=== PATIENT | female | born 1970 | race Caucasian/White ===

== ENCOUNTER 2016-07-15 11:05 | Emergency (ER) | payer BC, OTHER, SELFPAY ==
[~2016-07-15] VITALS: Ht 180.3 cm; Wt 76.6 kg
[2016-07-15] MEDS ORDERED: ONDANSETRON 2MG/ML, 2ML IVPush ONE (12:30)
[2016-07-15] MEDS ORDERED: DIPHENHYDRAMINE 50 MG/ML, 1ML IVPush ONE (12:30)
[2016-07-15] MEDS ORDERED: METOCLOPRAMIDE 5 MG/ML, 2ML IVPush ONE (12:30)
[2016-07-15] MEDS ORDERED: SODIUM CHLORIDE FLUSH 10ML SYR IVF ONE (12:30)
[2016-07-15] MEDS ORDERED: METOCLOPRAMIDE 5 MG/ML, 2ML ONE (12:37)
[2016-07-15] MEDS ORDERED: ONDANSETRON 2MG/ML, 2ML ONE (12:37)
[2016-07-15] MEDS ORDERED: DIPHENHYDRAMINE 50 MG/ML, 1ML ONE (12:37)
[2016-07-15 13:11] LABS: BLOOD UREA NITROGEN 7 mg/dL (7-18)
[2016-07-15 14:49] VITALS: BP 124/78
== END 2016-07-15 14:51 | disposition home or self-care (01) ==
LOC: ED 14:36
DX: G43.011 Migraine without aura, intractable, with status migrainosus (principal); J32.2 Chronic ethmoidal sinusitis; J32.0 Chronic maxillary sinusitis
CPT/HCPCS: 36415; 70450; 72125; 80048; 82040; 83735; 84439; 84443; 85025; 96374; 96375; 99285; J1200; J2405; J2765

== ENCOUNTER 2017-08-18 11:31 | Emergency (ER) | payer BC ==
[~2017-08-18] VITALS: Ht 175.3 cm; Wt 73.6 kg
[2017-08-18 11:44] VITALS: BP 134/85
[2017-08-18 13:31] LABS: BASOPHILS # (AUTO) 0.06 x10^3/uL (0-0.1); BASOPHILS % (AUTO) 1 % (0-1); EOSINOPHILS # (AUTO) 0.39 x10^3/uL (0-0.4); EOSINOPHILS % (AUTO) 5 % (1-7); LYMPHOCYTES # (AUTO) 1.88 x10^3/uL (1-3.4); LYMPHOCYTES % (AUTO) 23 % (22-44); MD NO; MEAN CORPUSCULAR HGB CONC 33.8 g/dL (32.4-35.8); MEAN CORPUSCULAR VOLUME 88.8 fL (80-100); MEAN PLATELET VOLUME 7.6 fL (7.4-10.4); MONOCYTES # (AUTO) 0.57 x10^3/uL (0.2-0.8); MONOCYTES % (AUTO) 7 % (2-9); NEUTROPHILS # (AUTO) 5.13 x10^3/uL (1.8-6.8); NEUTROPHILS % (AUTO) 64 % (42-75); PLATELET COUNT 319 x10^3/uL (130-400); RED BLOOD COUNT 4.91 x10^6/uL (3.82-5.3); RED CELL DISTRIBUTION WIDTH 14.1 % (9.6-15.2)
[2017-08-18 13:41] LABS: ALBUMIN 3.9 g/dL (3.4-5.0); ANION GAP 6 mmol/L (5-15); CALCIUM 8.4 mg/dL (8.5-10.1); CHLORIDE 109 mmol/L (98-107); CREATININE 0.64 mg/dL (0.55-1.02)
[2017-08-18 15:02] LABS: MICROSCOPIC AUTO
[2017-08-18 15:03] LABS: CULTURE INDICATED? YES
== END 2017-08-18 15:31 | disposition home or self-care (01) ==
LOC: ED 14:57
DX: N30.00 Acute cystitis without hematuria (principal); E03.9 Hypothyroidism, unspecified
CPT/HCPCS: 36415; 80048; 81001; 82040; 84703; 85025; 87086; 99284

== ENCOUNTER 2017-09-08 10:20 | Emergency (ER) | payer BC ==
[~2017-09-08] VITALS: Ht 177.8 cm; Wt 74.6 kg
[2017-09-08] MEDS ORDERED: THYR30TA PO (10:46)
[2017-09-08] MEDS ORDERED: ONDANSETRON 2MG/ML, 2ML ONE (10:48)
[2017-09-08] MEDS ORDERED: KETOROLAC 30 MG/1 ML ONE (10:48)
[2017-09-08] MEDS ORDERED: MORPHINE SULFATE 4 MG/ML, 1ML ONE (10:49)
[2017-09-08] MEDS ORDERED: SODIUM CHLORIDE FLUSH 10ML SYR IVF ONE (11:00)
[2017-09-08] MEDS ORDERED: KETOROLAC 30 MG/1 ML IVPush ONE (11:00)
[2017-09-08] MEDS ORDERED: MORPHINE SULFATE 4 MG/ML, 1ML IVPush PRN (11:00)
[2017-09-08] MEDS ORDERED: ONDANSETRON 2MG/ML, 2ML IVPush ONE (11:00)
[2017-09-08 11:08] LABS: BASOPHILS # (AUTO) 0.03 x10^3/uL (0-0.1); BASOPHILS % (AUTO) 0 % (0-1); EOSINOPHILS # (AUTO) 0.22 x10^3/uL (0-0.4); EOSINOPHILS % (AUTO) 3 % (1-7); LYMPHOCYTES # (AUTO) 1.52 x10^3/uL (1-3.4); LYMPHOCYTES % (AUTO) 22 % (22-44); MD NO; MEAN CORPUSCULAR HEMOGLOBIN 30.6 pg (27.0-34.8); MEAN CORPUSCULAR HGB CONC 34.4 g/dL (32.4-35.8); MEAN CORPUSCULAR VOLUME 89.1 fL (80-100); MEAN PLATELET VOLUME 7.7 fL (7.4-10.4); MONOCYTES # (AUTO) 0.38 x10^3/uL (0.2-0.8); MONOCYTES % (AUTO) 6 % (2-9); NEUTROPHILS # (AUTO) 4.73 x10^3/uL (1.8-6.8); NEUTROPHILS % (AUTO) 69 % (42-75); PLATELET COUNT 297 x10^3/uL (130-400); RED BLOOD COUNT 4.71 x10^6/uL (3.82-5.3); RED CELL DISTRIBUTION WIDTH 13.6 % (9.6-15.2)
[2017-09-08 11:19] LABS: ALANINE AMINOTRANSFERASE 18 U/L (12-78); ANION GAP 6 mmol/L (5-15); CALCIUM 8.5 mg/dL (8.5-10.1); CHLORIDE 110 mmol/L (98-107); CREATININE 0.69 mg/dL (0.55-1.02)
[2017-09-08 11:22] LABS: ALKALINE PHOSPHATASE 74 U/L (45-117); BILIRUBIN,TOTAL 0.7 mg/dL (0.2-1.0); TOTAL PROTEIN 7.4 g/dL (6.4-8.2)
[2017-09-08 12:23] LABS: HCG UR SG 1.031 (1.003-1.030)
[2017-09-08 12:24] LABS: MICROSCOPIC INDICATED
[2017-09-08 12:26] LABS: CULTURE INDICATED? YES
[2017-09-08 12:47] VITALS: BP 119/69
== END 2017-09-08 13:55 | disposition home or self-care (01) ==
LOC: ED 11:30
DX: R10.30 Lower abdominal pain, unspecified (principal); R11.0 Nausea; E03.9 Hypothyroidism, unspecified
CPT/HCPCS: 36415; 80053; 81001; 81025; 83690; 85025; 87086; 96374; 96375; 99284; J1885; J2405